=== PATIENT | female | born 2000 | race Two or more races ===

== ENCOUNTER 2024-10-17 08:10 | Day surgery (SDC) | payer MEDICAID, SELFPAY ==
[2024-10-12 16:01] VITALS: BMI 20.9
[2024-10-17] VITALS (9 sets, daily range): BP systolic 110–150; BP diastolic 65–103; PULSE 85–115; RESP 15–18; TEMP 36.6; O2SAT 96–100; BMI 21.6
[2024-10-17 10:20] LABS: HCG Qualitative,Urine Negative
[2024-10-17] MEDS: BENZOCAINE 20% (Hurricaine) SPRAY 1 DOSE TOP (10:27)
[2024-10-17] MEDS: RINGERS LACTATED 1000 ML 1,000 ML 125 ML IV (10:27)
[2024-10-17] MEDS: fentaNYL CIT INJ 50 mCg/ML AMP 2ML (ASD USE ONLY) IVP (10:36)
[2024-10-17] MEDS: MIDAZOLAM INJ 1 MG/ML VIAL 2 ML (ASD USE ONLY) 2 MG IVP (10:36)
== END 2024-10-17 11:32 | disposition home or self-care (01) ==
PROVIDERS: Anesthesiology; PCP Family Medicine; Referring Provider Internal Medicine Gastroenterology; Visit Provider Internal Medicine Gastroenterology
PROC: (CPT 43239; principal; 2024-10-17 11:15)
DX: K22.2 Esophageal obstruction (principal); K22.89 Other specified disease of esophagus; K29.70 Gastritis, unspecified, without bleeding; F41.9 Anxiety disorder, unspecified; F32.A Depression, unspecified
CPT/HCPCS: 43249; 43239; 81025; A4217; A4649; C1726; J1200; J2250; J3010; J7120; A9270